=== PATIENT | female | born 1975 | race African-American/Black ===

== ENCOUNTER 2017-02-17 15:32 | Inpatient (IN) | payer OTHER ==
[~2017-02-17] VITALS: Ht 160 cm; Wt 77.6 kg
--- NOTE | ~2017-02-17 | EKG ---
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
[~2017-02-17 15:32] MED LIST: ACETAMINOPHEN650 M5 PO; ADULT LOW DOSE81 MG PO; AFEDITAB CR60 M1 PO; AMLODIPINE BESY10 MG PO; ASPIRIN EC81 M1 PO; ATORVASTATIN CA10 MG PO; BENTYL20 MG PO; CARDURA4 MG PO; CARVEDILOL25 MG PO; CLONIDINE HCL0.3 M3 PO; COLACE 100 MG100 MG PO; COREG CR10 MG PO; COUMADIN 5 MG TA5 M1 PO; ENOXAPARIN60 MG/0.6 SUBQ; FISH OIL 1,001000 M2 PO; HYDROCHLOROTH12.5 MG PO; LISINOPRIL40 MG PO; LOVENOX SC; MIRALAX255 GM PO; NAPROSYN500 MG PO; NORCO 5-325 TA1 EACH PO; POTASSIUM20 PO; PRENATAL COMPL1 EACH PO; TOPROL XL25 MG PO; UNICOMPLEX M TA1 TA1 PO; ZOFRAN4 MG PO
[2017-02-17 15:33] VITALS: BP 201/112
[2017-02-17 16:34] LABS: BASOPHILS 1.1 % (0.0-2.0); EOSINOPHILS 0.9 % (0.0-3.0); HEMATOCRIT 40.2 % (37.0-47.0); HEMOGLOBIN 13.5 gm/dL (12.0-15.0); LYMPHOCYTES 40.5 % (24.0-44.0); MCH 30.9 pg (26.0-34.0); MCHC 33.6 g/dL (28.0-37.0); MCV 92.2 fL (80.0-100.0); MONOCYTES 7.2 % (1.0-8.0); PLATELET COUNT 378 thou/uL (150-400); POLYS 50.3 % (36.0-66.0); RBC 4.36 mil/uL (4.20-5.00); RDW 13.9 % (10.5-14.5); WBC 7.8 thou/uL (4.0-11.0)
[2017-02-17 16:35] LABS: MANUAL DIFF NO
[2017-02-17 16:40] LABS: ANION GAP 9 mmol/L (7-16); BUN 12 mg/dL (7-18); CALCIUM 9.7 mg/dL (8.5-10.1); CHLORIDE 106 mmol/L (98-107); CO2 21 mmol/L (21-32); CREATININE 0.8 mg/dL (0.6-1.0); GLUCOSE 86 mg/dL (74-106); POTASSIUM 4.2 mmol/L (3.5-5.1); SODIUM 136 mmol/L (136-145)
[2017-02-17 16:50] LABS: TROPONIN-I < 0.04 ng/mL (<0.04-0.07)
[2017-02-17 18:18] VITALS: BP 168/102
[2017-02-17 19:30] VITALS: BP 168/102
[2017-02-17 20:45] VITALS: BP 159/97
[2017-02-18 04:00] VITALS: BP 131/90
[2017-02-18 04:35] LABS: CALCIUM 9.4 mg/dL (8.5-10.1); POTASSIUM 3.8 mmol/L (3.5-5.1)
[2017-02-18 04:44] LABS: ALBUMIN 3.1 g/dL (3.4-5.0); PHOSPHORUS 4.3 mg/dL (2.5-4.9); TROPONIN-I 0.04 ng/mL (<0.04-0.07)
[2017-02-18 07:49] VITALS: BP 146/97
[2017-02-18 11:45] VITALS: BP 162/100
[2017-02-18 15:28] VITALS: BP 148/98
[2017-02-19 02:50] VITALS: BP 150/109
[2017-02-19 03:40] VITALS: BP 121/76
[2017-02-19 07:45] VITALS: BP 124/80
[2017-02-19] MEDS ORDERED: TRANDATE 200 M200 M1 PO (10:24)
[2017-02-19 12:48] VITALS: BP 124/80
[2017-02-19 12:51] VITALS: BP 124/80
== END 2017-02-19 13:07 | disposition home or self-care (01) | DRG 305 ==
LOC: ER 15:32 → 4E 18:07 → EROBS 18:07 → 4E 18:07
PROVIDERS: Emergency Medicine; Hospitalist
DX: I16.9 Hypertensive crisis, unspecified (principal); I10 Essential (primary) hypertension; E78.5 Hyperlipidemia, unspecified; E78.00 Pure hypercholesterolemia, unspecified; E66.9 Obesity, unspecified; Z68.30 Body mass index [BMI] 30.0-30.9, adult; Z86.73 Personal history of transient ischemic attack (TIA), and cerebral infarction without residual deficits; Z88.8 Allergy status to other drugs, medicaments and biological substances; Z86.711 Personal history of pulmonary embolism; Z82.49 Family history of ischemic heart disease and other diseases of the circulatory system; Z87.891 Personal history of nicotine dependence
CPT/HCPCS: 10183